=== PATIENT | female | born 1975 | race Caucasian/White ===

== ENCOUNTER 2020-02-07 16:03 | Emergency (ER) | payer OTHER ==
[2020-02-07 16:11] VITALS: TEMP 98
[2020-02-07] MEDS ORDERED: SODIUM CHLORIDE 0.9% 1,000 ML IV STA (16:34)
[2020-02-07] MEDS ORDERED: KETOROLAC 15 MG/ML 1 ML VIAL IVP STA ×2 (16:34→18:27)
[2020-02-07] MEDS ORDERED: MORPHINE SULFATE 4 MG/ML SYRINGE IVP STA (16:34)
[2020-02-07] MEDS ORDERED: ONDANSETRON 4 MG/2 ML VIAL IVP STA (16:34)
--- NOTE | 2020-02-07 16:37 | ED ---
General Adult HPI - General Chief complaint: Abdominal Pain Stated complaint: Cyst Time Seen by Provider: 02/07/20 16:18 Source: patient, RN notes reviewed Mode of arrival: ambulatory Limitations: no limitations - History of Present Illness Initial comments: 44-year-old female with a past medical history of fibroids presents to the emergency department for a chief complaint of lower abdominal pain. Patient states that this worsens when she sits on her bottom. States it is worse in the right lower quadrant. Patient states this is been ongoing since yesterday. She started with diarrhea 2 days ago. States she was having watery diarrhea every hour yesterday but this did slow down this morning. Denies nausea or vomiting. Denies fevers or chills.patient reports even exact symptoms have happened before and she was told it was her fibroids. This was about a year ago Patient has no other complaints at this time including shortness of breath, chest pain, nausea or vomiting, headache, or visual changes. - Related Data Home Medications Medication Instructions Recorded Confirmed Acetaminophen Tab [Tylenol Tab] 500 mg PO Q6HR PRN 02/07/20 02/07/20 Ibuprofen [Motrin Ib] 400 mg PO Q8H PRN 02/07/20 02/07/20 Naproxen Sodium [Aleve] 220 mg PO DAILY PRN 02/07/20 02/07/20 Allergies Allergy/AdvReac Type Severity Reaction Status Date / Time No Known Allergies Allergy Verified 02/07/20 17:35 Review of Systems ROS Statement: Those systems with pertinent positive or pertinent negative responses have been documented in the HPI. ROS Other: All systems not noted in ROS Statement are negative. Past Medical History Additional Past Medical History / Comment(s): hx fibroids General Exam Limitations: no limitations General appearance: alert, in no apparent distress Head exam: Present: atraumatic, normocephalic, normal inspection Eye exam: Present: normal appearance, PERRL, EOMI. Absent: scleral icterus, conjunctival injection, periorbital swelling ENT exam: Present: normal exam, mucous membranes moist Neck exam: Present: normal inspection, full ROM. Absent: tenderness, meningismus, lymphadenopathy Respiratory exam: Present: normal lung sounds bilaterally. Absent: respiratory distress, wheezes, rales, rhonchi, stridor Cardiovascular Exam: Present: regular rate, normal rhythm, normal heart sounds. Absent: systolic murmur, diastolic murmur, rubs, gallop, clicks GI/Abdominal exam: Present: soft, normal bowel sounds. Absent: distended, tenderness, guarding, rebound, rigid Rectal exam: Present: other ([place] appears normal) Neurological exam: Present: alert Course Vital Signs 02/07/20 16:06 Temperature 98.0 F Pulse Rate 98 Respiratory 18 Rate Blood Pressure 155/88 O2 Sat by Pulse 98 Oximetry Medical Decision Making - Medical Decision Making Vitals are stable. Patient does have slight leukocytosis with a white count of 15. CMP unremarkable. Urinalysis negative. CT abdomen and pelvis shows diverticulosis and a bulky uterus. The appendix is normal. At this time patient seen me because by diarrhea and possible gastroenteritis. I do not see an acutely surgical cause or patient's pain. However I do recommend that she follows up with GI, she was given this referral. She was given Lomotil in case the diarrhea starts again however has subsided since this morning. She will return if she has worsening pain or fevers. - Lab Data Result diagrams: 02/07/20 16:50 02/07/20 16:50 Lab Results 02/07/20 02/07/20 02/07/20 Range/Units 16:50 16:50 16:50 WBC 15.5 H (3.8-10.6) k/uL RBC 4.97 (3.80-5.40) m/uL Hgb 10.7 L (11.4-16.0) gm/dL Hct 33.6 L (34.0-46.0) % MCV 67.6 L (80.0-100.0) fL MCH 21.6 L (25.0-35.0) pg MCHC 32.0 (31.0-37.0) g/dL RDW 15.7 H (11.5-15.5) % Plt Count 371 (150-450) k/uL MPV 6.9 Neutrophils % 78 % Lymphocytes % 16 % Monocytes % 4 % Eosinophils % 1 % Basophils % 1 % Neutrophils # 12.1 H (1.3-7.7) k/uL Lymphocytes # 2.5 (1.0-4.8) k/uL Monocytes # 0.7 (0-1.0) k/uL Eosinophils # 0.1 (0-0.7) k/uL Basophils # 0.1 (0-0.2) k/uL Hypochromasia Slight Microcytosis Marked Sodium (137-145) mmol/L Potassium (3.5-5.1) mmol/L Chloride (98-107) mmol/L Carbon Dioxide (22-30) mmol/L Anion Gap mmol/L BUN (7-17) mg/dL Creatinine (0.52-1.04) mg/dL Est GFR (CKD-EPI)AfAm (>60 ml/min/1.73 sqM) Est GFR (CKD-EPI)NonAf (>60 ml/min/1.73 sqM) Glucose (74-99) mg/dL Calcium (8.4-10.2) mg/dL Total Bilirubin (0.2-1.3) mg/dL AST (14-36) U/L ALT (4-34) U/L Alkaline Phosphatase (38-126) U/L Total Protein (6.3-8.2) g/dL Albumin (3.5-5.0) g/dL Amylase (30-110) U/L Lipase (23-300) U/L Urine Color Yellow Urine Appearance Clear (Clear) Urine pH 6.0 (5.0-8.0) Ur Specific [employer] 1.016 (1.001-1.035) Urine Protein Negative (Negative) Urine Glucose (UA) Negative (Negative) Urine Ketones Negative (Negative) Urine Blood Negative (Negative) Urine Nitrite Negative (Negative) Urine Bilirubin Negative (Negative) Urine Urobilinogen <2.0 (<2.0) mg/dL Ur Leukocyte Esterase Negative (Negative) Urine HCG, Qual Not Detected (Not Detectd) 02/07/20 Range/Units 16:50 WBC (3.8-10.6) k/uL RBC (3.80-5.40) m/uL Hgb (11.4-16.0) gm/dL Hct (34.0-46.0) % MCV (80.0-100.0) fL MCH (25.0-35.0) pg MCHC (31.0-37.0) g/dL RDW (11.5-15.5) % Plt Count (150-450) k/uL MPV Neutrophils % % Lymphocytes % % Monocytes % % Eosinophils % % Basophils % % Neutrophils # (1.3-7.7) k/uL Lymphocytes # (1.0-4.8) k/uL Monocytes # (0-1.0) k/uL Eosinophils # (0-0.7) k/uL Basophils # (0-0.2) k/uL Hypochromasia Microcytosis Sodium 136 L (137-145) mmol/L Potassium 4.4 (3.5-5.1) mmol/L Chloride 105 (98-107) mmol/L Carbon Dioxide 27 (22-30) mmol/L Anion Gap 4 mmol/L BUN 21 H (7-17) mg/dL Creatinine 1.00 (0.52-1.04) mg/dL Est GFR (CKD-EPI)AfAm 81 (>60 ml/min/1.73 sqM) Est GFR (CKD-EPI)NonAf 70 (>60 ml/min/1.73 sqM) Glucose 100 H (74-99) mg/dL Calcium 9.7 (8.4-10.2) mg/dL Total Bilirubin 0.3 (0.2-1.3) mg/dL AST 23 (14-36) U/L ALT 18 (4-34) U/L Alkaline Phosphatase 73 (38-126) U/L Total Protein 7.4 (6.3-8.2) g/dL Albumin 4.3 (3.5-5.0) g/dL Amylase 60 (30-110) U/L Lipase 62 (23-300) U/L Urine Color Urine Appearance (Clear) Urine pH (5.0-8.0) Ur Specific [employer] (1.001-1.035) Urine Protein (Negative) Urine Glucose (UA) (Negative) Urine Ketones (Negative) Urine Blood (Negative) Urine Nitrite (Negative) Urine Bilirubin (Negative) Urine Urobilinogen (<2.0) mg/dL Ur Leukocyte Esterase (Negative) Urine HCG, Qual (Not Detectd) Disposition Clinical Impression: Abdominal pain, Diarrhea Disposition: HOME SELF-CARE Condition: Good Instructions (If sedation given, give patient instructions): Abdominal Pain (ED) Additional Instructions: Please take Motrin and Tylenol for pain. Please follow-up with GI by calling tomorrow for appointment. Please return to the emergency room if you have worsening pain, fevers, bloody diarrhea or any other worsening symptoms Is patient prescribed a controlled substance at d/c from ED?: No Referrals: Shital Renteria MD [STAFF PHYSICIAN] - 1-2 days Izzy Gould MD [REFERRING] - 1-2 days Time of Disposition: 18:55
[2020-02-07 17:01] LABS: Basophils # (A) 0.1 k/uL (0-0.2); Basophils % (A) 1 %; Eosinophils # (A) 0.1 k/uL (0-0.7); Eosinophils % (A) 1 %; HCT 33.6 % (34.0-46.0); HGB 10.7 gm/dL (11.4-16.0); Hypochromasia Slight; Lymphocytes # (A) 2.5 k/uL (1.0-4.8); Lymphocytes % (A) 16 %; MCH 21.6 pg (25.0-35.0); MCV 67.6 fL (80.0-100.0); Mean Platelet Volume 6.9; Microcytosis Marked; Monocytes # (A) 0.7 k/uL (0-1.0); Monocytes % (A) 4 %; Neutrophils # (A) 12.1 k/uL (1.3-7.7); Neutrophils % (A) 78 %; Platelet Count 371 k/uL (150-450); RBC 4.97 m/uL (3.80-5.40); RDW 15.7 % (11.5-15.5); WBC 15.5 k/uL (3.8-10.6)
[2020-02-07 17:04] LABS: Appearance,Urine Clear (Clear); Bilirubin,Urine Negative (Negative); Blood,Urine Negative (Negative); Color,Urine Yellow; Glucose,Urine (UA) Negative (Negative); Ketones,Urine Negative (Negative); Leukocyte Esterase,Urine Negative (Negative); Nitrite,Urine Negative (Negative); Protein,Urine Negative (Negative); Specific Gravity,Urine 1.016 (1.001-1.035); Urobilinogen,Urine <2.0 mg/dL (<2.0)
[2020-02-07 17:14] LABS: Albumin 4.3 g/dL (3.5-5.0); Calcium 9.7 mg/dL (8.4-10.2); Potassium 4.4 mmol/L (3.5-5.1); Total Bilirubin 0.3 mg/dL (0.2-1.3); Total Protein 7.4 g/dL (6.3-8.2)
--- NOTE | 2020-02-07 18:20 | CT ---
EXAMINATION TYPE: CT abdomen pelvis wo con DATE OF EXAM: 02/07/2020 COMPARISON: None HISTORY: ABDOMINAL PAIN CT DLP: 741 mGycm Automated exposure control for dose reduction was used. TECHNIQUE: Helical acquisition of images from the lung bases through the pelvis. FINDINGS: Lack of intravenous contrast could compromise sensitivity LUNG BASES: No significant abnormality is appreciated. AORTA: No significant abnormality is appreciated. LIVER/GB: Patient is post cholecystectomy, liver shows no evident lesion. PANCREAS: No significant abnormality is seen. SPLEEN: No significant abnormality is seen. ADRENALS: No significant abnormality is seen. KIDNEYS: No significant abnormality is seen. REPRODUCTIVE ORGANS: Fallopian tubal ligation clips are suspected, correlate. Uterus appears somewha t bulky URINARY BLADDER: No significant abnormality is seen. BOWEL: Diverticular changes associated with the sigmoid colon. The appendix is normal FREE AIR: No Free Air is visible. ASCITES: None visible. PELVIC ADENOPATHY: None visualized. RETROPERITONEAL ADENOPATHY: No Retroperitoneal Adenopathy visible. OSSEOUS STRUCTURES: No significant abnormality is seen. IMPRESSION: NONCONTRAST EXAM. NONSPECIFIC FINDINGS DESCRIBED ABOVE.1 DIVERTICULOSIS.
[2020-02-07] MEDS ORDERED: ACET/COD 300 MG/30 MG STARTER PACK 6 TAB BTL PO STA (18:59)
[2020-02-07] MEDS ORDERED: DIPHENOX-ATROP STARTER PACK 8 TAB BTL PO STA (18:59)
[2020-02-07 19:25] VITALS: BP 121/87; PULSE 80; RESP 16
== END 2020-02-07 19:25 | disposition home or self-care (01) ==
LOC: EC 16:03
DX: K57.30 Diverticulosis of large intestine without perforation or abscess without bleeding (principal); R19.7 Diarrhea, unspecified; D72.829 Elevated white blood cell count, unspecified
CPT/HCPCS: 36415; 80053; 82150; 83690; 85025; 81003; 81025; 74176; 99284; 96374; 96375 ×2; 96361; J2270; J2405; J1885

== ENCOUNTER → 2021-02-15 | Outpatient (CLI) | payer OTHER ==
--- NOTE | 2021-02-15 14:51 | CT ---
CT angiogram of the head HISTORY: Cerebral aneurysm nonruptured Helical acquisition obtained through the brain during an prior to dynamic administration 100 cc Isovu e-370 IV. Three-dimensional reconstructions were performed on an alternate workstation. There is no exam submitted for correlation. The brain shows no hemorrhage or hydrocephalus. The calvarium is intact. Paranasal sinuses and mastoi d air cells as visualized are within normal limits. Anterior posterior circulation are intact. There is no evident vascular malformation, dissection, embolus, or stenosis. Cerebral vascular calcificatio ns are present. IMPRESSION: Normal [place] CTA
== END | disposition home or self-care (01) ==
LOC: RADCTMAIN 10:08
PROVIDERS: ATTEND Family Medicine
DX: I67.1 Cerebral aneurysm, nonruptured (principal)
CPT/HCPCS: 70496; Q9967

== ENCOUNTER 2021-03-19 17:13 | Observation (INO) | payer OTHER ==
[2021-03-19 19:27] LABS: Anisocytosis Slight; HCT 28.6 % (34.0-46.0); HGB 7.8 gm/dL (11.4-16.0); Hypochromasia Marked; Lymphocytes % (A) 26 %; MCH 16.9 pg (25.0-35.0); MCHC 27.1 g/dL (31.0-37.0); MCV 62.2 fL (80.0-100.0); Mean Platelet Volume 7.3; Microcytosis Marked; Monocytes % (A) 4 %; Neutrophils % (A) 66 %; Platelet Count 659 k/uL (150-450); Poikilocytosis Slight; RDW 17.8 % (11.5-15.5); WBC 9.3 k/uL (3.8-10.6)
[2021-03-19 19:28] LABS: Basophils % (A) 0 %; Eosinophils # (A) 0.1 k/uL (0-0.7); Eosinophils % (A) 1 %; Lymphocytes # (A) 2.4 k/uL (1.0-4.8); Monocytes # (A) 0.3 k/uL (0-1.0); Neutrophils # (A) 6.1 k/uL (1.3-7.7)
[2021-03-19 19:31] LABS: ALT 16 U/L (4-34); AST 32 U/L (14-36); African American GFR (CKD) >90 (>60 ml/min/1.73 sqM); Albumin 4.7 g/dL (3.5-5.0); Alkaline Phosphatase 125 U/L (38-126); Anion Gap 10 mmol/L; Blood Urea Nitrogen 16 mg/dL (7-17); Calcium 9.8 mg/dL (8.4-10.2); Carbon Dioxide 24 mmol/L (22-30); Chloride 102 mmol/L (98-107); Glucose 106 mg/dL (74-99); Non-African American GFR(CKD) 84 (>60 ml/min/1.73 sqM); Potassium 3.9 mmol/L (3.5-5.1); Sodium 136 mmol/L (137-145); Total Bilirubin 0.4 mg/dL (0.2-1.3); Total Protein 8.2 g/dL (6.3-8.2)
[2021-03-19 19:38] LABS: Hypochromasia (M) Present; Ovalocytes Present; Polychromasia Present; Stomatocytes Present
--- NOTE | 2021-03-19 21:16 | ED ---
General Adult HPI - General Chief complaint: Recheck/Abnormal Lab/Rx Stated complaint: Low Hg,Sent by PCP Time Seen by Provider: 03/19/21 21:05 Source: patient, family, RN notes reviewed, old records reviewed Mode of arrival: ambulatory Limitations: no limitations - History of Present Illness Initial comments: This is a well-appearing pleasant 45-year-old female who presents to the emergency room, alert and oriented 4, with her complaining of shortness of breath with exertion and fatigue. She states that she was sent by her primary care doctor after having labs drawn finding a low hemoglobin. She was told to come to the emergency room for an iron transfusion. She states that she had 3 episodes of black tarry stools about 3 weeks ago. She has had no other bleeding. She denies any abdominal pain. She states this never happened to her before. She states that she did have coronavirus in February and since she's had shortness of breath. No previous abdominal surgeries. She does have history of GERD and hypertension -: month(s) (1) Severity scale (1-10): 0 Associated Symptoms: shortness of breath, other (fatigue) - Related Data Home Medications Medication Instructions Recorded Confirmed Ibuprofen [Motrin Ib] 400 mg PO Q8H PRN 02/07/20 03/19/21 Omeprazole [PriLOSEC] 20 mg PO DAILY 03/19/21 03/19/21 cloNIDine HCL [Catapres] 0.1 mg PO HS 03/19/21 03/19/21 diphenhydrAMINE [Benadryl] 25 mg PO HS PRN 03/19/21 03/19/21 Allergies Allergy/AdvReac Type Severity Reaction Status Date / Time No Known Allergies Allergy Verified 03/19/21 21:34 Review of Systems ROS Statement: Those systems with pertinent positive or pertinent negative responses have been documented in the HPI. ROS Other: All systems not noted in ROS Statement are negative. Past Medical History Past Medical History: GERD/Reflux, Hypertension Additional Past Medical History / Comment(s): hx fibroids History of Any Multi-Drug Resistant Organisms: None Reported Past Surgical History: No Surgical Hx Reported Past Psychological History: No Psychological Hx Reported Smoking Status: Vaper Past Alcohol Use History: None Reported Past Drug Use History: None Reported General Exam Limitations: no limitations General appearance: alert, in no apparent distress Head exam: Present: atraumatic, normocephalic, normal inspection Eye exam: Present: normal appearance, EOMI. Absent: scleral icterus, conjunctival injection, nystagmus, periorbital swelling ENT exam: Present: normal exam, normal oropharynx, mucous membranes moist Neck exam: Present: normal inspection, full ROM. Absent: tenderness, meningismus, lymphadenopathy, thyromegaly Respiratory exam: Present: normal lung sounds bilaterally. Absent: respiratory distress, wheezes, rales, rhonchi, stridor, chest wall tenderness, accessory muscle use, decreased breath sounds, prolonged expiratory Cardiovascular Exam: Present: regular rate, normal rhythm, normal heart sounds. Absent: systolic murmur, diastolic murmur, rubs, gallop, clicks, JVD GI/Abdominal exam: Present: soft, normal bowel sounds. Absent: distended, tenderness, guarding, rebound, rigid Rectal exam: Present: normal inspection, normal rectal tone. Absent: fecal impaction, mass, tenderness Extremities exam: Present: normal inspection, full ROM, normal capillary refill. Absent: tenderness, pedal edema, joint swelling, calf tenderness Back exam: Present: normal inspection, full ROM. Absent: tenderness, CVA tenderness (R), CVA tenderness (L), rash noted Neurological exam: Present: alert, oriented X3 Psychiatric exam: Present: normal affect, normal mood Skin exam: Present: warm, dry, intact, normal color. Absent: rash, cyanosis, diaphoretic, pallor Course Vital Signs 03/19/21 18:55 Temperature 98.1 F Pulse Rate 97 Respiratory 20 Rate Blood Pressure 195/88 O2 Sat by Pulse 100 Oximetry Medical Decision Making - Medical Decision Making Well-appearing 45-year-old female presents complaining of shortness of breath with exertion and fatigue. She states that she was sent by her primary care doctor for transfusion. X-ray shows no pleural effusion, no acute cardiopulmonary process. Patient states that she did have a normal menstrual cycle which was not heavy last week. Abdomen is soft and nontender. She denies any hematochezia or hematemesis. Hemoglobin is 7.8, hematocrit is 28.6. Occult blood is negative. Vital signs are stable. 2 units packed RBCs were ordered. Patient will be placed in observation. Case was discussed with Dr. Jeter. - Lab Data Result diagrams: 03/19/21 21:32 03/19/21 21:32 Lab Results 03/19/21 03/19/21 03/19/21 Range/Units 19:07 19:07 21:29 WBC 9.3 (3.8-10.6) k/uL RBC 4.60 (3.80-5.40) m/uL Hgb 7.8 L (11.4-16.0) gm/dL Hct 28.6 L (34.0-46.0) % MCV 62.2 L (80.0-100.0) fL MCH 16.9 L (25.0-35.0) pg MCHC 27.1 L (31.0-37.0) g/dL RDW 17.8 H (11.5-15.5) % Plt Count 659 H (150-450) k/uL MPV 7.3 Neutrophils % 66 % Lymphocytes % 26 % Monocytes % 4 % Eosinophils % 1 % Basophils % 0 % Neutrophils # 6.1 (1.3-7.7) k/uL Lymphocytes # 2.4 (1.0-4.8) k/uL Monocytes # 0.3 (0-1.0) k/uL Eosinophils # 0.1 (0-0.7) k/uL Basophils # 0.0 (0-0.2) k/uL Polychromasia Present Hypochromasia Marked Hypochromasia (manual) Present Poikilocytosis Slight Anisocytosis Slight Microcytosis Marked Ovalocytes Present Stomatocytes Present PT (9.0-12.0) sec INR (<1.2) APTT (22.0-30.0) sec Sodium 136 L (137-145) mmol/L Potassium 3.9 (3.5-5.1) mmol/L Chloride 102 (98-107) mmol/L Carbon Dioxide 24 (22-30) mmol/L Anion Gap 10 mmol/L BUN 16 (7-17) mg/dL Creatinine 0.86 (0.52-1.04) mg/dL Est GFR (CKD-EPI)AfAm >90 (>60 ml/min/1.73 sqM) Est GFR (CKD-EPI)NonAf 84 (>60 ml/min/1.73 sqM) Glucose 106 H (74-99) mg/dL Plasma Lactic Acid Daniel (0.7-2.0) mmol/L Calcium 9.8 (8.4-10.2) mg/dL Magnesium (1.6-2.3) mg/dL Total Bilirubin 0.4 (0.2-1.3) mg/dL AST 32 (14-36) U/L ALT 16 (4-34) U/L Alkaline Phosphatase 125 (38-126) U/L Troponin I (0.000-0.034) ng/mL Total Protein 8.2 (6.3-8.2) g/dL Albumin 4.7 (3.5-5.0) g/dL Stool Occult Blood (Negative) Blood Type O Positive Blood Type Confirm Blood Type Recheck No Previous Record Bld Type Recheck Status CABO Indicated Antibody Screen NEGATIVE Spec Expiration Date 03/22/2021 - 232803/19/21 03/19/21 03/19/21 Range/Units 21:30 21:32 21:32 WBC 9.6 (3.8-10.6) k/uL RBC 4.39 (3.80-5.40) m/uL Hgb 7.6 L (11.4-16.0) gm/dL Hct 27.4 L (34.0-46.0) % MCV 62.4 L (80.0-100.0) fL MCH 17.4 L (25.0-35.0) pg MCHC 27.9 L (31.0-37.0) g/dL RDW 17.3 H (11.5-15.5) % Plt Count 626 H (150-450) k/uL MPV 7.7 Neutrophils % 64 % Lymphocytes % 27 % Monocytes % 5 % Eosinophils % 1 % Basophils % 0 % Neutrophils # 6.2 (1.3-7.7) k/uL Lymphocytes # 2.6 (1.0-4.8) k/uL Monocytes # 0.5 (0-1.0) k/uL Eosinophils # 0.1 (0-0.7) k/uL Basophils # 0.0 (0-0.2) k/uL Polychromasia Hypochromasia Marked Hypochromasia (manual) Poikilocytosis Slight Anisocytosis Slight Microcytosis Marked Ovalocytes Stomatocytes PT 9.4 (9.0-12.0) sec INR 0.9 (<1.2) APTT 22.2 (22.0-30.0) sec Sodium (137-145) mmol/L Potassium (3.5-5.1) mmol/L Chloride (98-107) mmol/L Carbon Dioxide (22-30) mmol/L Anion Gap mmol/L BUN (7-17) mg/dL Creatinine (0.52-1.04) mg/dL Est GFR (CKD-EPI)AfAm (>60 ml/min/1.73 sqM) Est GFR (CKD-EPI)NonAf (>60 ml/min/1.73 sqM) Glucose (74-99) mg/dL Plasma Lactic Acid Daniel (0.7-2.0) mmol/L Calcium (8.4-10.2) mg/dL Magnesium (1.6-2.3) mg/dL Total Bilirubin (0.2-1.3) mg/dL AST (14-36) U/L ALT (4-34) U/L Alkaline Phosphatase (38-126) U/L Troponin I (0.000-0.034) ng/mL Total Protein (6.3-8.2) g/dL Albumin (3.5-5.0) g/dL Stool Occult Blood (Negative) Blood Type Blood Type Confirm O Positive Blood Type Recheck Bld Type Recheck Status Antibody Screen Spec Expiration Date 03/19/21 03/19/21 03/19/21 Range/Units 21:32 21:32 21:32 WBC (3.8-10.6) k/uL RBC (3.80-5.40) m/uL Hgb (11.4-16.0) gm/dL Hct (34.0-46.0) % MCV (80.0-100.0) fL MCH (25.0-35.0) pg MCHC (31.0-37.0) g/dL RDW (11.5-15.5) % Plt Count (150-450) k/uL MPV Neutrophils % % Lymphocytes % % Monocytes % % Eosinophils % % Basophils % % Neutrophils # (1.3-7.7) k/uL Lymphocytes # (1.0-4.8) k/uL Monocytes # (0-1.0) k/uL Eosinophils # (0-0.7) k/uL Basophils # (0-0.2) k/uL Polychromasia Hypochromasia Hypochromasia (manual) Poikilocytosis Anisocytosis Microcytosis Ovalocytes Stomatocytes PT (9.0-12.0) sec INR (<1.2) APTT (22.0-30.0) sec Sodium 137 (137-145) mmol/L Potassium 3.9 (3.5-5.1) mmol/L Chloride 103 (98-107) mmol/L Carbon Dioxide 24 (22-30) mmol/L Anion Gap 10 mmol/L BUN 16 (7-17) mg/dL Creatinine 0.87 (0.52-1.04) mg/dL Est GFR (CKD-EPI)AfAm >90 (>60 ml/min/1.73 sqM) Est GFR (CKD-EPI)NonAf 82 (>60 ml/min/1.73 sqM) Glucose 119 H (74-99) mg/dL Plasma Lactic Acid Daniel 1.2 (0.7-2.0) mmol/L Calcium 9.6 (8.4-10.2) mg/dL Magnesium 2.1 (1.6-2.3) mg/dL Total Bilirubin 0.4 (0.2-1.3) mg/dL AST 26 (14-36) U/L ALT 15 (4-34) U/L Alkaline Phosphatase 120 (38-126) U/L Troponin I <0.012 (0.000-0.034) ng/mL Total Protein 7.6 (6.3-8.2) g/dL Albumin 4.3 (3.5-5.0) g/dL Stool Occult Blood (Negative) Blood Type Blood Type Confirm Blood Type Recheck Bld Type Recheck Status Antibody Screen Spec Expiration Date 03/19/21 Range/Units 22:33 WBC (3.8-10.6) k/uL RBC (3.80-5.40) m/uL Hgb (11.4-16.0) gm/dL Hct (34.0-46.0) % MCV (80.0-100.0) fL MCH (25.0-35.0) pg MCHC (31.0-37.0) g/dL RDW (11.5-15.5) % Plt Count (150-450) k/uL MPV Neutrophils % % Lymphocytes % % Monocytes % % Eosinophils % % Basophils % % Neutrophils # (1.3-7.7) k/uL Lymphocytes # (1.0-4.8) k/uL Monocytes # (0-1.0) k/uL Eosinophils # (0-0.7) k/uL Basophils # (0-0.2) k/uL Polychromasia Hypochromasia Hypochromasia (manual) Poikilocytosis Anisocytosis Microcytosis Ovalocytes Stomatocytes PT (9.0-12.0) sec INR (<1.2) APTT (22.0-30.0) sec Sodium (137-145) mmol/L Potassium (3.5-5.1) mmol/L Chloride (98-107) mmol/L Carbon Dioxide (22-30) mmol/L Anion Gap mmol/L BUN (7-17) mg/dL Creatinine (0.52-1.04) mg/dL Est GFR (CKD-EPI)AfAm (>60 ml/min/1.73 sqM) Est GFR (CKD-EPI)NonAf (>60 ml/min/1.73 sqM) Glucose (74-99) mg/dL Plasma Lactic Acid Daniel (0.7-2.0) mmol/L Calcium (8.4-10.2) mg/dL Magnesium (1.6-2.3) mg/dL Total Bilirubin (0.2-1.3) mg/dL AST (14-36) U/L ALT (4-34) U/L Alkaline Phosphatase (38-126) U/L Troponin I (0.000-0.034) ng/mL Total Protein (6.3-8.2) g/dL Albumin (3.5-5.0) g/dL Stool Occult Blood Negative (Negative) Blood Type Blood Type Confirm Blood Type Recheck Bld Type Recheck Status Antibody Screen Spec Expiration Date Disposition Clinical Impression: GIB (gastrointestinal bleeding) Disposition: ADMITTED IP TO THIS [facility] Referrals: Chang Alvarado DO [Primary Care Provider] - 1-2 days Decision Date: 03/19/21 Decision Time: 22:34
--- NOTE | 2021-03-19 21:30 | XR ---
EXAMINATION TYPE: XR chest 2V DATE OF EXAM: 03/19/2021 COMPARISON: NONE HISTORY: Shortness of breath. TECHNIQUE: Frontal and lateral views of the chest are obtained. FINDINGS: There is no focal air space opacity, pleural effusion, or pneumothorax seen. The cardiac silhouette size is within normal limits. The osseous structures are intact. IMPRESSION: No acute cardiopulmonary process.
[2021-03-19 22:09] LABS: Anisocytosis Slight; Basophils % (A) 0 %; Eosinophils # (A) 0.1 k/uL (0-0.7); Eosinophils % (A) 1 %; HCT 27.4 % (34.0-46.0); HGB 7.6 gm/dL (11.4-16.0); Hypochromasia Marked; Lymphocytes # (A) 2.6 k/uL (1.0-4.8); Lymphocytes % (A) 27 %; MCH 17.4 pg (25.0-35.0); MCHC 27.9 g/dL (31.0-37.0); MCV 62.4 fL (80.0-100.0); Mean Platelet Volume 7.7; Microcytosis Marked; Monocytes # (A) 0.5 k/uL (0-1.0); Monocytes % (A) 5 %; Neutrophils # (A) 6.2 k/uL (1.3-7.7); Neutrophils % (A) 64 %; Platelet Count 626 k/uL (150-450); Poikilocytosis Slight; RBC 4.39 m/uL (3.80-5.40); RDW 17.3 % (11.5-15.5); WBC 9.6 k/uL (3.8-10.6)
[2021-03-19 22:26] LABS: ALT 15 U/L (4-34); AST 26 U/L (14-36); African American GFR (CKD) >90 (>60 ml/min/1.73 sqM); Albumin 4.3 g/dL (3.5-5.0); Alkaline Phosphatase 120 U/L (38-126); Anion Gap 10 mmol/L; Blood Urea Nitrogen 16 mg/dL (7-17); Calcium 9.6 mg/dL (8.4-10.2); Carbon Dioxide 24 mmol/L (22-30); Chloride 103 mmol/L (98-107); Glucose 119 mg/dL (74-99); Magnesium 2.1 mg/dL (1.6-2.3); Non-African American GFR(CKD) 82 (>60 ml/min/1.73 sqM); Potassium 3.9 mmol/L (3.5-5.1); Sodium 137 mmol/L (137-145); Total Bilirubin 0.4 mg/dL (0.2-1.3); Total Protein 7.6 g/dL (6.3-8.2)
[2021-03-19] MEDS ORDERED: NALOXONE 0.4 MG/ML 1 ML VIAL IV PRN (22:41)
[2021-03-19 22:47] LABS: INR 0.9 (<1.2); Partial Thromboplastin Time 22.2 sec (22.0-30.0); Prothrombin Time 9.4 sec (9.0-12.0)
[2021-03-19] MEDS: PANTOPRAZOLE 40 MG/10 ML VIAL IV SCH (23:21)
[2021-03-19] MEDS ORDERED: ACETAMINOPHEN TAB 500 MG TAB PO STA (23:39)
[2021-03-20] MEDS: cloNIDine HCL 0.1 MG TAB PO SCH ×2 (04:41→21:45)
[2021-03-20] MEDS ORDERED: PEG 3350-NA SULF,BICARB,CL/KCL 4,000 ML BOTTLE PO ONE (12:43)
[2021-03-20] MEDS: ACETAMINOPHEN TAB 325 MG TAB PO PRN ×2 (13:46→21:45)
--- NOTE | 2021-03-20 14:32 | HP ---
HISTORY AND PHYSICAL CHIEF COMPLAINT: Low hemoglobin anemia. HISTORY OF PRESENT ILLNESS: This 45-year-old woman with a past medical history of multiple medical problems including GERD, hypertension, history of diverticular disease, history of UTI, history of uterine fibroids, being followed by Dr. Chang Alvarado in the outpatient setting, was noted to have some shortness of breath on exertion, palpitation, fatigue, patient found to have anemia. The patient had 3 episodes of black tarry stools about 3 weeks ago and there was no abdominal pain. The patient came to [facility] and hemoglobin is found to be 7.8. The patient received 2 units of transfusion. Patient admitted to the hospital for further evaluation and treatment. Surgery has seen the patient and Gastroenterology has seen the patient and recommended EGD and colonoscopy. No chest pain. No palpitations. No fever. There is no history of fever, rigors, chills at this time. PAST MEDICAL HISTORY: History of GERD, history of hypertension, history of diverticular disease, history of cholecystectomy. MEDICATIONS: Prior to admission include home medications are: Benadryl 25 mg q.h.s., Catapres, Prilosec, Motrin. Doses reviewed. ALLERGIES: None. FAMILY HISTORY: History of cancer. Father of leukemia. SOCIAL HISTORY: Previous history of smoking, vaping. REVIEW OF SYSTEMS: ENT: No diminished vision. No diminished hearing. CARDIOVASCULAR system: No angina or palpitations. RESPIRATORY: As mentioned earlier. GI: As mentioned earlier. : No dysuria. NERVOUS SYSTEM: No numbness or weakness. ALLERGY/IMMUNOLOGY: No asthma or hayfever. MUSCULOSKELETAL: As mentioned earlier. HEMATOLOGY/ONCOLOGY: No history of anemia. ENDOCRINE: No history of diabetes or hypothyroidism. CONSTITUTIONAL: As mentioned earlier. DERMATOLOGICAL: Negative. RHEUMATOLOGICAL: Negative. PSYCHIATRIC: As mentioned earlier. PHYSICAL EXAMINATION: Patient is alert, oriented x3. The pulse is 70. Blood pressure 135/70, respirations 16, temperature 97.7, pulse ox 100 percent on room air. HEENT: Conjunctivae normal. NECK: No JVD. CARDIOVASCULAR: S1, S2 muffled. RESPIRATION: Breath sounds diminished in the bases. A few rhonchi. No crackles. ABDOMEN: Soft. Nontender. No mass palpable. LEGS: No edema. No swelling. NERVOUS SYSTEM: Higher functions as mentioned. Moves all four extremities. No focal deficits. LYMPHATICS: No lymph nodes palpable in the neck, axillae or groin. SKIN: No ulcer, no rash and no bleeding. JOINTS: No active deforming arthropathy. LABS: WBC 9.7, hemoglobin 7.6, sodium 137, potassium 3.9. Stool is negative. Covid 19 is negative. ASSESSMENT: 1. Anemia possibly acute gastrointestinal blood loss anemia status post transfusion, symptomatic. 2. Microcytosis. 3. Elevated platelets. 4. Hyponatremia. 5. History of gastroesophageal reflux disease. 6. Hypertension. 7. History of diverticular disease. 8. History of urinary tract infection. 9. Uterine fibroids. 10.Cholecystectomy. 11.History of section. 12.History of nicotine dependence. 13.History of vaping. 14.FULL CODE. RECOMMENDATIONS AND DISCUSSION: This 45-year-old woman who presented with multiple complex medical issues, we will monitor the patient closely, continue the current medications, symptomatic treatment. Otherwise, endoscopies as mentioned earlier, and repeat labs. Prognosis guarded because of multiple complex medical issues. Further recommendations to follow. A copy of this dictation being forwarded to Dr. Chang Alvarado, who is the primary physician. MMODL / IJN: [id number] /
--- NOTE | 2021-03-20 14:38 | P.CONS ---
History of Present Illness - Reason for Consult Consult date: 03/20/21 Symptomatically anemia Requesting physician: Twin Daniels - Chief Complaint Anemia - History of Present Illness A 45-year-old white female who presented to the emergency department directed by her PCP. Patient had been having increased fatigue as well as shortness of breath and had blood work done in the outpatient setting which showed that she was anemic. She recently was diagnosed with Covid in February of this year. Does admit to have some shortness of breath and fatigue since then. She thought it was all related to her Covid infection. She does have a history of acid reflux. States that she was taking significant amount of Motrin during the last 1-2 months due to headache and sore throat from the infection. He also was started on omeprazole since February for acid reflux which she states has helped some. She also does have a significant history of alcoholism and admits to drinking 6-12 beers a day for 20 years. Patient states she quit approximately 3 years ago. She did also report black stools for 2-3 days approximately 3 weeks ago. She denies any hematemesis or rectal bleeding. Patient also states she has heavy menstrual periods where she soaks through 3-4 pads a day. On admission she was noted to have a hemoglobin of 7.8 and was given 2 units of PRBC transfusion. Repeat hemoglobin today 7.6 and a crit 27 platelet count 626,000 and are 0.90 local blood was negative. Denies any abdominal pain, nausea, or vomiting. Review of Systems REVIEW OF SYSTEMS: CARDIOPULMONARY: No chest pain. Shortness of breath. Gastrointestinal: No epigastric or abdominal pain. Does report acid reflux. No nausea or vomiting. No hematemesis, coffee-ground emesis. No rectal bleeding, or melena. GENITOURINARY: No dysuria or hematuria. MUSCULOSKELETAL: Reports normal range of motion., Joint pain. SKIN: No rashes. No jaundice. ENDOCRINE: No chills, fevers. No excessive weight gain or loss. No polydipsia or polyuria. PSYCHIATRIC: Unremarkable. NEUROLOGY: No change in mental status. Denies dizziness, headache. ENT: Vision unremarkable. CONSTITUTIONAL: No recent weight loss. No fever, chills, night sweats. Increased fatigue. Past Medical History Past Medical History: GERD/Reflux, Hypertension Additional Past Medical History / Comment(s): hx fibroids History of Any Multi-Drug Resistant Organisms: None Reported Past Surgical History: No Surgical Hx Reported Past Psychological History: No Psychological Hx Reported Smoking Status: Vaper Past Alcohol Use History: None Reported Past Drug Use History: None Reported - Past Family History Father Family Medical History: Cancer Additional Family Medical History / Comment(s): Father from leukemia Mother Family Medical History: Hyperlipidemia, Skin Disorder Additional Family Medical History / Comment(s): 3 back surgeries, cellulitis Medications and Allergies Home Medications Medication Instructions Recorded Confirmed Type Ibuprofen [Motrin Ib] 400 mg PO Q8H PRN 02/07/20 03/19/21 History Omeprazole [PriLOSEC] 20 mg PO DAILY 03/19/21 03/19/21 History cloNIDine HCL [Catapres] 0.1 mg PO HS 03/19/21 03/19/21 History diphenhydrAMINE [Benadryl] 25 mg PO HS PRN 03/19/21 03/19/21 History Allergies Allergy/AdvReac Type Severity Reaction Status Date / Time No Known Allergies Allergy Verified 03/19/21 21:34 Physical Exam Vitals: Vital Signs Temp Pulse Pulse Resp BP BP Pulse Ox 03/20/21 08:00 98 F 75 16 138/80 98 03/20/21 06:49 98.4 F 74 16 135/78 96 03/20/21 04:26 97.7 F 70 16 135/79 100 03/20/21 01:54 98.0 F 80 16 131/81 99 03/20/21 01:24 98.3 F 83 16 130/66 99 03/20/21 01:14 98.4 F 85 16 135/65 99 03/19/21 18:55 98.1 F 97 20 195/88 100 Intake and Output 03/19/21 03/20/21 03/20/21 22:59 06:59 14:59 Intake Total 310 Balance 310 Intake: Blood Product 310 Rc As-1 Unit 310 [id number] Other: Weight 90.718 kg General appearance: The patient is alert, oriented, appears in no acute distress. HET: Head is normocephalic and atraumatic. Conjunctiva pink. Sclera anicteric. Neck: Supple without lymphadenopathy. Trachea midline. Heart: S1 S2. Regular rate and rhythm. Lungs: Clear to auscultation. Abdomen: Soft, tender, nondistended with bowel sounds. No guarding or rigidity. Skin: No rashes. No jaundice. Extremities: Normal skin color and turgor. No pedal edema. Neurological: No focal deficits. Alert and oriented x3. Results CBC & Chem 7: 03/19/21 21:32 03/19/21 21:32 Labs: Abnormal Lab Results - Last 24 Hours (Table) 03/19/21 03/19/21 03/19/21 Range/Units 19:07 19:07 21:29 Hgb 7.8 L (11.4-16.0) gm/dL Hct 28.6 L (34.0-46.0) % MCV 62.2 L (80.0-100.0) fL MCH 16.9 L (25.0-35.0) pg MCHC 27.1 L (31.0-37.0) g/dL RDW 17.8 H (11.5-15.5) % Plt Count 659 H (150-450) k/uL Sodium 136 L (137-145) mmol/L Glucose 106 H (74-99) mg/dL Crossmatch See Detail 03/19/21 03/19/21 Range/Units 21:32 21:32 Hgb 7.6 L (11.4-16.0) gm/dL Hct 27.4 L (34.0-46.0) % MCV 62.4 L (80.0-100.0) fL MCH 17.4 L (25.0-35.0) pg MCHC 27.9 L (31.0-37.0) g/dL RDW 17.3 H (11.5-15.5) % Plt Count 626 H (150-450) k/uL Sodium (137-145) mmol/L Glucose 119 H (74-99) mg/dL Crossmatch Chest x-ray: report reviewed (No acute cardiopulmonary process) Assessment and Plan (1) Microcytic anemia Narrative/Plan: 45-year-old female who presented to the emergency department as directed by her PCP. She recently seen her PCP and was having complaints of fatigue and shortness of breath since February. She also had been having acid reflux and was put on omeprazole. Patient had outpatient blood work showing anemia. She was told to come to the emergency department for blood transfusion. She does report having 2-3 days of black stools approximately 3 weeks ago. She denies any abdominal pain, nausea, or vomiting. She was noted to have a hemoglobin of 7.8 on admission is 2 units of PRBC transfusion. She has labs consistent with a microcytic anemia which is consistent with iron deficiency anemia. She was taking significant amount of Motrin during the month of February for her sore throat and headache related to COVID-19 infection. She has no previous history of peptic ulcer disease. She's had no prior EGD or colonoscopy. Likely there may be a source of the GI bleed causing the anemia therefore EGD and colonoscopy will be performed. Also discussed with patient importance to follow-up with her manager program for heavy menstrual cycles. Current Visit: Yes Status: Acute Code(s): D50.9 - IRON DEFICIENCY ANEMIA, UNSPECIFIED SNOMED Code(s): 958564296 (2) Symptomatic anemia Current Visit: Yes Status: Acute Code(s): D64.9 - ANEMIA, UNSPECIFIED SNOMED Code(s): 177751199 Plan: 1. Continue symptomatic and supportive care 2. Protonix 40 mg twice a day 3. Clear liquid diet, nothing by mouth after midnight 4. CBC daily, transfuse for hemoglobin less than 7 5. Bowel prep this evening 6. Plan on EGD and colonoscopy tomorrow. Procedures discussed with patient including risks and benefits. Patient is willing to proceed. Thank you for this consultation, we will continue to follow. Dr. Stephanie Renteria I agree with the dictator's note, documented as a scribe by Sariah Delgadillo.
[2021-03-20] MEDS: PANTOPRAZOLE 40 MG/10 ML VIAL IV SCH (21:46)
[2021-03-20 22:02] LABS: Anisocytosis Moderate; Basophils # (A) 0.1 k/uL (0-0.2); Basophils % (A) 1 %; Eosinophils # (A) 0.2 k/uL (0-0.7); Eosinophils % (A) 2 %; HCT 36.3 % (34.0-46.0); Hypochromasia Marked; Lymphocytes # (A) 2.8 k/uL (1.0-4.8); Lymphocytes % (A) 33 %; MCH 19.8 pg (25.0-35.0); MCHC 29.1 g/dL (31.0-37.0); Mean Platelet Volume 7.8; Microcytosis Marked; Monocytes # (A) 0.5 k/uL (0-1.0); Monocytes % (A) 6 %; Neutrophils # (A) 4.6 k/uL (1.3-7.7); Neutrophils % (A) 55 %; Platelet Count 589 k/uL (150-450); Poikilocytosis Marked; RBC 5.34 m/uL (3.80-5.40); RDW 20.4 % (11.5-15.5); WBC 8.3 k/uL (3.8-10.6)
[2021-03-20 22:17] LABS: HGB 10.6 gm/dL (11.4-16.0)
[2021-03-21 04:42] VITALS: BP 110/61; PULSE 64; RESP 16; TEMP 98.5
[2021-03-21 07:54] LABS: Anisocytosis Moderate; Basophils % (A) 1 %; Eosinophils # (A) 0.1 k/uL (0-0.7); Eosinophils % (A) 3 %; HCT 34.6 % (34.0-46.0); Hypochromasia Marked; Lymphocytes # (A) 1.8 k/uL (1.0-4.8); Lymphocytes % (A) 32 %; MCH 19.6 pg (25.0-35.0); MCHC 28.9 g/dL (31.0-37.0); MCV 67.9 fL (80.0-100.0); Mean Platelet Volume 7.1; Microcytosis Marked; Monocytes # (A) 0.4 k/uL (0-1.0); Monocytes % (A) 7 %; Neutrophils % (A) 54 %; Platelet Count 519 k/uL (150-450); Poikilocytosis Marked; RDW 21.2 % (11.5-15.5); WBC 5.6 k/uL (3.8-10.6)
[2021-03-21 08:12] LABS: African American GFR (CKD) >90 (>60 ml/min/1.73 sqM); Anion Gap 4 mmol/L; Blood Urea Nitrogen 7 mg/dL (7-17); Calcium 9.7 mg/dL (8.4-10.2); Carbon Dioxide 30 mmol/L (22-30); Chloride 104 mmol/L (98-107); Glucose 98 mg/dL (74-99); Non-African American GFR(CKD) 81 (>60 ml/min/1.73 sqM); Potassium 4.9 mmol/L (3.5-5.1); Sodium 138 mmol/L (137-145)
[2021-03-21] MEDS ORDERED: MIDAZOLAM 2 MG/2 ML VIAL ONE (11:08)
[2021-03-21] MEDS ORDERED: fentaNYL (PF) 50 MCG/ML 2 ML AMP ONE (11:08)
[2021-03-21] MEDS ORDERED: LIDOCAINE 1% INJ 10MG/ML (20 ML MDV) ONE (11:08)
[2021-03-21] MEDS ORDERED: SODIUM CHLORIDE 0.9% 500 ML 500 ML IV ONE (11:33)
--- NOTE | 2021-03-21 11:38 | P.PCN ---
Date of Procedure: 03/21/21 Procedure(s) Performed: Brief history: Patient is a pleasant 45-year-old white female admitted hospital with symptomatic microcytic hypochromic anemia. Hemoglobin was 10 g/dL. She was also complaining of intermittent dark stools. She is hence scheduled for an upper endoscopy as well as colonoscopy as a part of evaluation of iron deficiency anemia. Procedure performed: Esophagogastroduodenoscopy with biopsy Colonoscopy snare polypectomy Preoperative diagnosis: Iron deficiency anemia Anesthesia: MAC Procedure: After informed consent was obtained from the patient was brought into the endoscopy unit and IV sedation was administered by anesthesia under continuous monitoring. Initially upper endoscopy was done. The Olympus GF 160 video endoscope was inserted inserted into the mouth and esophagus intubated without any difficulty and was gradually advanced into the stomach and duodenum and ca refully examined. The bulb and second part of the duodenum appeared normal as his were done from the duodenum to rule out celiac disease.. The scope was then withdrawn into the stomach adequately insufflated with air and upon careful examination the antrum and mild antral gastritis seen and biopsies were done from this area. The body, cardia and fundus appeared normal. The scope was then withdrawn into the esophagus. The GE junction was located at 40 cm to the incisors. It appeared regular with no erythema erosions or ulcerations. Rest of the esophagus appeared normal. Patient tolerated the procedure well. At this time the patient continued to remain sedation. Initial digital rectal examination was normal. Olympus CF 160 video colonoscope was then inserted into the rectum and gradually advanced to the cecum without any difficulty. Careful examination was performed as the scope was gradually being withdrawn. The prep was excellent. The cecum, ascending colon, transverse colon, descending colon, sigmoid colon and rectum appeared normal. rectum there was a 5 mm polyp that was removed by snare polypectomy Retroflexion was performed in the rectum and no lesions were noted. Patient tolerated the procedure well. Impression: 1. Upper endoscopy revealed mild antral gastritis 2. Colonoscopy revealed 5 mm rectal polyp status post polypectomy ecommendations: Findings of this examination were discussed with the patient. He was advised to follow with the biopsy results. If the biopsy results adenoma she can have a repeat colonoscopy in 5 years. Start iron supplements twice daily and monitor CBC on a frequent basis..
[2021-03-21] MEDS ORDERED: FERROUS SULFATE 325 MG TAB PO SCH (17:30)
--- NOTE | 2021-03-21 20:38 | DS ---
DISCHARGE SUMMARY FINAL DIAGNOSES: 1. Anemia, possibly acute gastrointestinal blood loss anemia status post transfusion, symptomatic. 2. Status post EGD, colonoscopy, colonoscopy showing a rectal polyp and snare polypectomy. 3. Microcytosis. 4. Elevated platelets. 5. Menorrhagia. 6. Hyponatremia. 7. History of gastroesophageal reflux disease. 8. Hypertension. 9. History of diverticular disease. 10.Urinary tract infection. 11.Uterine fibroids. 12.Cholecystectomy. 13.History of section. 14.Nicotine dependence. 15.History of vaping. 16.FULL CODE. DISCHARGE DISPOSITION: The patient will be discharged in stable condition with guarded prognosis. HISTORY OF PRESENT ILLNESS: This 45-year-old woman with past medical history of multiple medical problems being followed by Dr. Chang Alvarado in the outpatient setting. The patient had significant low hemoglobin symptoms. Hemoglobin was initially 7.6 and patient was transfused. EGD/colonoscopy done by Dr. Renteria showed rectal polyp and snare polypectomy was done. Dr. Renteria recommended repeat colonoscopy in 5 years and follow up in the office with biopsy report. On exam, vitals stable. Cardiovascular S1, S2. Abdomen soft. Nervous system: No focal deficits. Hemoglobin 10. Dr. 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 Discharge diet is cardiac diet. Activity limited until followup. Follow up with Dr. Mack Renteria in one week. Follow up with Dr. Chang Alvardao in 1-2 days, CBC, BMP. MEDICATIONS: 1. Benadryl p.r.n. 2. Catapres 0.1 q.h.s. 3. Prilosec 20 mg daily. 4. Iron sulfate 320 mg p.o. b.i.d. 5. Tylenol p.r.n. The patient discharged in stable condition. Guarded prognosis. MMODL / IJN: [id number] /
== END 2021-03-21 14:17 | disposition home or self-care (01) ==
LOC: EC 17:13 → INTOOBSV 03-20 01:36 → 5NMEDONC 03-20 01:36 → 3NCARDOBS 03-20 18:41 → UNDODISIN 03-21 14:17
PROVIDERS: ADMIT Hospitalist; ATTEND Hospitalist
PROC: 30233N1 Transfusion of Nonautologous Red Blood Cells into Peripheral Vein, Percutaneous Approach (ICD-10-PCS; 2021-03-20)
PROC: 0DD98ZX Extraction of Duodenum, Via Natural or Artificial Opening Endoscopic, Diagnostic (ICD-10-PCS; 2021-03-21)
PROC: 0DBP8ZX Excision of Rectum, Via Natural or Artificial Opening Endoscopic, Diagnostic (ICD-10-PCS; principal; 2021-03-21 10:50)
PROC: 0DD78ZX Extraction of Stomach, Pylorus, Via Natural or Artificial Opening Endoscopic, Diagnostic (ICD-10-PCS; 2021-03-21 10:50)
DX: D50.9 Iron deficiency anemia, unspecified (principal); E87.1 Hypo-osmolality and hyponatremia; K62.1 Rectal polyp; K29.50 Unspecified chronic gastritis without bleeding; N92.0 Excessive and frequent menstruation with regular cycle; K21.9 Gastro-esophageal reflux disease without esophagitis; I10 Essential (primary) hypertension; D25.9 Leiomyoma of uterus, unspecified; K57.90 Diverticulosis of intestine, part unspecified, without perforation or abscess without bleeding; F17.290 Nicotine dependence, other tobacco product, uncomplicated; Z20.822 Contact with and (suspected) exposure to COVID-19; Z79.899 Other long term (current) drug therapy; Z86.16 Personal history of COVID-19; Z87.440 Personal history of urinary (tract) infections; Z90.49 Acquired absence of other specified parts of digestive tract; Z98.891 History of uterine scar from previous surgery; Z80.6 Family history of leukemia; Z83.49 Family history of other endocrine, nutritional and metabolic diseases; Z84.0 Family history of diseases of the skin and subcutaneous tissue
CPT/HCPCS: 96376; 36430; 96374; 99285; 36415; 86900; 86901; 88305; 80053; 80048; 83605; 83735; 84484; 85025 ×3; 85610; 85730; 86850; 86920; 82272; 88342; 81025; 87635; 71046; 45385; 43239; G0378 ×3; P9016; J2250; J2001; J3010; C9113 ×2

== ENCOUNTER → 2021-03-23 | Outpatient (CLI) | payer OTHER ==
[2021-03-23 22:40] LABS: HCT 33.8 % (37.2-46.3); HGB 9.6 g/dL (12.0-15.0); MCH 18.9 pg (27.0-32.0); MCHC 28.4 g/dL (32.0-37.0); MCV 66.5 fL (80.0-97.0); Mean Platelet Volume 10.2 fL (9.5-12.2); Platelet Count 582 X 10*3/uL (140-440); RBC 5.08 X 10*6/uL (4.10-5.20); RDW 25.2 % (11.5-14.5); WBC 10.53 X 10*3/uL (4.50-10.00)
[2021-03-24 00:15] LABS: Basophils # (A) 0.09 X 10*3/uL (0.00-0.10); Basophils % (A) 0.9 %; Eosinophils # (A) 0.06 X 10*3/uL (0.04-0.35); Eosinophils % (A) 0.6 %; Lymphocytes # (A) 3.03 X 10*3/uL (0.90-5.00); Lymphocytes % (A) 28.8 %; Monocytes # (A) 0.84 X 10*3/uL (0.20-1.00); Neutrophils # (A) 6.48 X 10*3/uL (1.80-7.70); Neutrophils % (A) 61.4 %
[2021-03-24 00:16] LABS: Hypochromasia (M) 3+; Microcytosis (M) 2+
== END | disposition home or self-care (01) ==
LOC: LABWHC1 16:14
PROVIDERS: ATTEND Registered Nurse
DX: D64.9 Anemia, unspecified (principal)
CPT/HCPCS: 36415; 85025

== ENCOUNTER → 2021-05-30 | Outpatient (CLI) | payer OTHER ==
[2021-05-31 01:12] LABS: Basophils # (A) 0.06 X 10*3/uL (0.00-0.10); Basophils % (A) 0.6 %; Eosinophils # (A) 0.12 X 10*3/uL (0.04-0.35); Eosinophils % (A) 1.2 %; HCT 37.3 % (37.2-46.3); HGB 11.3 g/dL (12.0-15.0); Immature Grans, Automated 0.3 %; Lymphocytes # (A) 2.48 X 10*3/uL (0.90-5.00); Lymphocytes % (A) 25.5 %; MCH 23.5 pg (27.0-32.0); MCHC 30.3 g/dL (32.0-37.0); MCV 77.7 fL (80.0-97.0); Mean Platelet Volume 10.5 fL (9.5-12.2); Monocytes # (A) 0.72 X 10*3/uL (0.20-1.00); Monocytes % (A) 7.4 %; NRBC Per 100 WBC 0 /100 WBCS (0.0-0.0); Neutrophils # (A) 6.33 X 10*3/uL (1.80-7.70); Platelet Count 338 X 10*3/uL (140-440); RDW 19.9 % (11.5-14.5); WBC 9.74 X 10*3/uL (4.50-10.00)
== END | disposition home or self-care (01) ==
LOC: LABPAT 15:27
PROVIDERS: ATTEND Obstetrics & Gynecology
DX: Z01.812 Encounter for preprocedural laboratory examination (principal); I10 Essential (primary) hypertension; N93.8 Other specified abnormal uterine and vaginal bleeding; D25.9 Leiomyoma of uterus, unspecified
CPT/HCPCS: 85025

== ENCOUNTER 2021-06-19 07:09 | Day surgery (SDC) | payer OTHER ==
[2021-06-15 10:29] VITALS: BMI 26.6
[~2021-06-19 07:09] MED LIST: DEXAMETHASONE SOD PHOSPHATE 4 MG/ML 1 ML VIAL IV ONE; HYDROmorphone 0.5 MG/0.5 ML SYRINGE IVP PRN; LACTATED RINGERS 1,000 ML IV SCH; ONDANSETRON 4 MG/2 ML VIAL IVP ONE; Pre Op ABX Message 1 EACH MISC MISCELLANE ONE
[2021-06-19] MEDS ORDERED: LACTATED RINGERS 1,000 ML IV ONE (07:22)
[2021-06-19] MEDS ORDERED: LIDOCAINE 1% (10MG/ML) FOR IV START INTRADERMA ONE (07:30)
[2021-06-19] MEDS ORDERED: PROPOFOL 10 MG/ML 20 ML VIAL IV ONE (07:33)
[2021-06-19] MEDS ORDERED: MIDAZOLAM 2 MG/2 ML VIAL ONE (07:33)
[2021-06-19] MEDS ORDERED: KETOROLAC 15 MG/ML 1 ML VIAL ONE (07:33)
[2021-06-19] MEDS ORDERED: fentaNYL (PF) 50 MCG/ML 2 ML AMP ONE (07:33)
[2021-06-19] MEDS ORDERED: LIDOCAINE 1% INJ 10MG/ML (20 ML MDV) ONE (07:33)
[2021-06-19] MEDS ORDERED: LIDOCAINE 1%-EPI 1:100,000 20 ML VIAL SQ ONE (07:50)
[2021-06-19 08:16] VITALS: TEMP 97.7
--- NOTE | 2021-06-19 08:19 | P.OP ---
Date of Procedure: 06/19/21 Preoperative Diagnosis: Menorrhagia and fibroid uterus Postoperative Diagnosis: Same Procedure(s) Performed: Diagnostic hysteroscopy and NovaSure endometrial ablation Anesthesia: MAC Surgeon: Ita Salcido Estimated Blood Loss (ml): 5 IV fluids (ml): 400 Urine output (ml): 10 Pathology: none sent Condition: stable Disposition: PACU Operative Findings: On diagnostic hysteroscopy there is no evidence of intracavitary lesions or disruption of the endometrial cavity contour by fibroid changes. Bilateral tubal ostia were visualized. Description of Procedure: After the patient was met in the preoperative holding area and all questions were answered, she was taken to the operating room where anesthetic was administered without incident. Appropriate timeout procedure was undertaken. Exam under anesthetic was undertaken. The bladder was drained for a scant amount of urine. Weighted speculum was placed in the vagina and the cervix was grasped anteriorly with a single-tooth tenaculum. Paracervical block with lidocaine plus epinephrine was placed. Uterus was sounded to 9 cm. The cervix was then sequentially dilated using Hegar dilators to allow for passage of the diagnostic hysteroscope. The hysteroscope was introduced and a normal endometrial cavity was appreciated. There do not appear to be any contour changes nor intracavitary lesions. The bilateral tubal ostia were easily vis ualized. The hysteroscope was removed and the cervix was further dilated to allow for passage of the NovaSure ablation device. The device was placed with a cavity length of 5.5 cm, width of 4.6 cm on. The device was enabled and cavity assessment test was passed. Treatment cycle was 1 minute 47 seconds at a power of 139 W. Following cessation of the treatment cycle the device was removed and the hysteroscope was reintroduced. Complete desiccation of the endometrial cavity was appreciated. Instruments were then removed from the cervix which was observed. No active bleeding was noted. Instrument removed from the vagina and the patient was awoken from anesthetic without incident. She was transported to recovery area in good condition. All counts were correct.
[2021-06-19] MEDS ORDERED: HYDROmorphone 1 MG/ML 1 ML SYRINGE IVP ONE (09:02)
[2021-06-19 09:45] VITALS: BP 150/90; PULSE 70; RESP 16
== END 2021-06-19 10:34 | disposition home or self-care (01) ==
LOC: OR 07:09
PROVIDERS: ATTEND Obstetrics & Gynecology
DX: N92.0 Excessive and frequent menstruation with regular cycle (principal); I10 Essential (primary) hypertension; K21.9 Gastro-esophageal reflux disease without esophagitis; F41.9 Anxiety disorder, unspecified; D64.9 Anemia, unspecified; Z79.899 Other long term (current) drug therapy
CPT/HCPCS: 58563; 81025; J2250; J1100; J2405; J2001; J3010; J1170; J1885; J2704

== ENCOUNTER → 2021-09-07 | Outpatient (CLI) | payer OTHER ==
--- NOTE | 2021-09-07 12:32 | XR ---
EXAMINATION TYPE: XR Hip Complete LT DATE OF EXAM: 09/07/2021 COMPARISON: None HISTORY: Pain TECHNIQUE: 2 view left hip FINDINGS: Femoral head articulates with the acetabulum. Joint space is preserved. No acute fracture o r dislocation is evident. Follow-up exam can be performed 7-10 days from acute trauma for continued pain. IMPRESSION: 1. Normal 2 view left hip
== END | disposition home or self-care (01) ==
LOC: RADXRMAIN 11:44
PROVIDERS: ATTEND Nurse Practitioner Family
DX: M25.552 Pain in left hip (principal)
CPT/HCPCS: 73502

== ENCOUNTER → 2023-01-15 | Outpatient (CLI) | payer BC ==
--- NOTE | 2023-01-15 11:05 | CT ---
EXAMINATION TYPE: CT abdomen pelvis wo con CT DLP: 639.60 mGycm, Automated exposure control for dose reduction was used. DATE OF EXAM: 01/15/2023 10:59 AM COMPARISON: CT abdomen pelvis most recent from 02/07/2020. CLINICAL INDICATION:Female, 47 years old with history of R10.9 UNSPECIFIED ABDOMINAL PAIN; painful ur ination X 1 1/2 months TECHNIQUE: Standard CT of the abdomen and pelvis without IV or oral contrast. Lack of IV or oral co ntrast limits evaluation of solid and hollow organ viscera. Coronal and sagittal reformats were perfo rmed. FINDINGS: LOWER CHEST: Unremarkable ABDOMEN LIVER: Unremarkable noncontrast appearance GALLBLADDER AND BILE DUCTS: The gallbladder is surgically absent. PANCREAS: Unremarkable noncontrast appearance SPLEEN: Unremarkable noncontrast appearance ADRENAL GLANDS: Unremarkable noncontrast appearance. KIDNEYS AND URETERS: No evidence of hydronephrosis. Nonobstructive left superior pole 2 mm calculus. PELVIS BLADDER: Under distended, limiting evaluation. REPRODUCTIVE: Unremarkable noncontrast appearance ABDOMEN & PELVIS STOMACH AND BOWEL: Stomach and duodenum are unremarkable. The appendix is within normal limits. No fo ryan bowel wall thickening or surrounding inflammatory changes. Distal colonic scattered diverticulosi s without evidence for acute diverticulitis. No evidence of bowel obstruction. PERITONEUM: No evidence of pneumoperitoneum or free fluid. VASCULATURE: No evidence of aortic aneurysm. MUSCULOSKELETAL: No acute osseous abnormalities LYMPH NODES: No gross evidence for lymphadenopathy. SOFT TISSUE/ABDOMINAL WALL: Unremarkable IMPRESSION: 1. No acute abdominal/pelvic process within limitations of a noncontrast exam. 2. Nonobstructive 2 mm left renal calculus. 3. Colonic diverticulosis without evidence for acute diverticulitis.
== END | disposition home or self-care (01) ==
LOC: RADCTMAIN 10:43
PROVIDERS: ATTEND Family Medicine
DX: N20.0 Calculus of kidney (principal); K57.30 Diverticulosis of large intestine without perforation or abscess without bleeding; R10.9 Unspecified abdominal pain
CPT/HCPCS: 74176

== ENCOUNTER → 2023-08-06 | Outpatient (CLI) | payer BC ==
--- NOTE | 2023-08-06 16:02 | XR ---
EXAMINATION TYPE: XR lumbar spine 2 or 3V DATE OF EXAM: 08/06/2023 COMPARISON: None HISTORY: Low back pain TECHNIQUE: 3 view lumbar spine FINDINGS: There are 5 lumbar-type vertebral bodies. Pedicles are intact. Disc heights are preserved. Vertebral body heights are preserved. There is side bending towards the left. Body alignment is other dunn unremarkable. IMPRESSION: 1. No acute osseous abnormality lumbar spine
== END | disposition home or self-care (01) ==
LOC: RADXRMAIN 09:56
PROVIDERS: ATTEND Nurse Practitioner Family
DX: M54.50 Low back pain, unspecified (principal)
CPT/HCPCS: 72100